=== PATIENT | male | born 1960 | race Caucasian/White ===

== ENCOUNTER 2016-12-09 17:34 | Emergency (ER) | payer BC ==
[~2016-12-09] VITALS: Ht 177.8 cm; Wt 98.6 kg
[~2016-12-09 17:34] MED LIST: AMLODIPINE BESY10 MG PO; ASPIR 8181 M1 PO; BLOOD PRESSURE; CIPROFLOXACIN500 M1 PO; FLOMAX0.4 MG PO; HYDROCODON-ACE1 EAC7 PO; IBUPROFEN600 MG PO; LEVAQUIN500 MG PO; LISINOPRIL20 MG PO; MOTRIN600 MG PO; NAPROSYN500 MG PO; VICODIN 5-3001 EACH PO; VITAMIN C500 M1 PO; ZOFRAN4 MG PO
[2016-12-09 18:00] VITALS: BP 181/88
[2016-12-09 20:01] LABS: HEMATOCRIT 44.3 % (38.0-50.0); MCH 29.2 PG (29.0-34.0); MCHC 33.6 G/DL (30.0-36.0); MCV 86.7 FL (86-99); MEAN PLAT.VOLUME 9.4 uM^3 (9.0-12.4); PLATELET COUNT 241 K/uL (156-360); RBC DIS.WIDTH-SD 40.9 % (39-53); RED BLOOD COUNT 5.11 M/uL (4.00-5.50); WHITE BLOOD COUNT 9.9 K/uL (4.1-10.2)
[2016-12-09 20:17] LABS: CHLORIDE 106 mEq/L (99-109); POTASSIUM 4.7 mEq/L (3.7-5.4); SODIUM 139 mEq/L (136-147)
[2016-12-09 20:19] LABS: GLUCOSE 105 mg/dL (70-99)
[2016-12-09 20:20] LABS: ANION GAP 11 MEQ/L (2-14)
[2016-12-09 20:21] LABS: TOTAL BILIRUBIN 0.5 mg/dL (0.0-1.0)
[2016-12-09 20:22] LABS: ALKALINE PHOSPHATASE 82 IU/L (3-129)
[2016-12-09 20:23] LABS: GFR ESTIMATE (CALCULATED) > 59 mL/min/
[2016-12-09 20:24] LABS: UREA NITROGEN (BUN) 18 mg/dL (9-23)
[2016-12-09] MEDS ORDERED: VIBRAMYCIN100 MG PO (20:43)
[2016-12-09] MEDS ORDERED: KEFLEX500 MG PO (20:43)
[2016-12-09] MEDS ORDERED: MOTRIN800 MG PO (20:44)
[2016-12-09] MEDS ORDERED: PERCOCET 5/31 TABLET PO (20:44)
== END 2016-12-09 20:59 | disposition home or self-care (01) ==
LOC: EME 17:34
PROVIDERS: Physician Assistant
PROC: 3E0234Z Introduction of Serum, Toxoid and Vaccine into Muscle, Percutaneous Approach (ICD-10-PCS; principal; 2016-12-09)
DX: L08.9 Local infection of the skin and subcutaneous tissue, unspecified (principal); X58.XXXA Exposure to other specified factors, initial encounter; Y93.89 Activity, other specified; Y92.89 Other specified places as the place of occurrence of the external cause; Z23 Encounter for immunization
CPT/HCPCS: 73140; 80053; 85027; 99281; 99284